=== PATIENT | male | born 1955 | race African-American/Black ===

== ENCOUNTER 2016-07-22 15:04 | Emergency (ER) | payer MEDICARE, OTHER ==
[~2016-07-22] VITALS: Ht 175.3 cm; Wt 85.0 kg
[~2016-07-22 15:04] MED LIST: BACT800T5 PO; DILA8TAB4 PO; GLYB5TAB3 PO; MECL25 PO; PRIN20TA2 PO; XANA2TAB2 PO
[2016-07-22 15:06] VITALS: BP 160/81; PULSE 105; RESP 15; TEMP 98.2; O2SAT 98
[2016-07-22] MEDS ORDERED: CEPH-460 PO (17:44)
[2016-07-22] MEDS ORDERED: IBUP800T23 PO (17:44)
[2016-07-22] MEDS ORDERED: BACT800T5 PO (17:44)
[2016-07-22] MEDS ORDERED: TETANUS/DIPHTHERIA TOXOID ADULT 0.5 ML VIAL IM ONE (17:45)
[2016-07-22] MEDS ORDERED: SULFAMETHOXAZOLE-TRIMETHOPRIM DS 800-160 MG TAB PO ONE (17:45)
[2016-07-22] MEDS ORDERED: CEPHALEXIN MONOHYDRATE 500 MG CAP PO ONE (17:45)
[2016-07-22] MEDS ORDERED: IBUPROFEN 800 MG TAB PO ONE (17:45)
--- NOTE | 2016-07-22 17:45 | PD ---
HPI Chief Complaint: Skin Problem Time Seen by Provider: 17:42 Travel History International Travel<30 days: No Contact w/Intl Traveler<30days: No Traveled to known affect area: No History of Present Illness HPI 60-year-old male presents to the emergency Department with complaint of a laceration to his left fourth digit that he thinks has become infected. He cut his finger on a saw yesterday and since then his finger and his hand become swollen and painful. He denies fever, chills, nausea, vomiting. Denies paresthesias, loss of sensation to affected hand. Reports decreased range of motion secondary to pain and swelling. Has not taken any medications to alleviate his symptoms. Has tried icing his hand to decrease swelling and pain. Does not know if he is up-to-date on his tetanus vaccination. No known allergies. No other modifying factors or associated signs and symptoms. PFSH Past Medical History Arthritis: Yes Blood Disorders: No Cancer: No Cardiovascular Problems: Yes Diabetes: Yes Diminished Hearing: No Endocrine: No Genitourinary: No Hypertension: Yes Immune Disorder: No Musculoskeletal: Yes Neurologic: No Psychiatric: No Reproductive: No Respiratory: No Past Surgical History Abdominal Surgery: Yes (left hernia repair) Oral Surgery: Yes (tonsillectomy) Tonsillectomy: Yes Social History Alcohol Use: Yes (beer daily) Tobacco Use: No Substance Use: No Allergies-Medications (Allergen,Severity, Reaction): Coded Allergies: No Known Allergies (Verified , 07/22/16) Reported Meds & Prescriptions Reported Meds & Active Scripts Active Ibuprofen 800 Mg Tab 800 Mg PO Q8H PRN Bactrim DS (Sulfamethoxazole-Trimethoprim) 800-160 Mg Tab 1 Tab PO BID 10 Days Keflex (Cephalexin) 500 Mg Cap 500 Mg PO Q6H 10 Days Reported Fentanyl Patch 72 HR (Fentanyl) 50 Mcg/Hr Patch 50 Mcg T-DERMAL Q72H Remove old patch when new one placed. Lisinopril 10 Mg Tab 10 Mg PO DAILY Dilaudid (Hydromorphone HCl) 8 Mg Tab 8 Mg PO Q6H PRN Review of Systems Except as stated in HPI: all other systems reviewed are Neg Physical Exam Narrative GENERAL: Well-nourished, well-developed male patient, in no acute distress; afebrile, nontoxic-appearing SKIN: Warm and dry. Left fourth digit with superficial laceration that is approximately 1-1/2 cm and is dry and healing by secondary intention; the wound is without drainage; the finger has limited range of motion with flexion at all finger joints; the finger and dorsal aspect of the hand are edematous, erythematous and with warmth to touch; all fingers with sensory intact and less than 3 second cap refill. Left upper extremities supple and non-tense with 2+ radial pulses and sensory intact. No left axillary lymphadenopathy. HEAD: Atraumatic. Normocephalic. EYES: Pupils equal and round. No scleral icterus. No injection or drainage. ENT: Mucosa pink and moist. Airway patent. NECK: Trachea midline. CARDIOVASCULAR: Regular rate. RESPIRATORY: No accessory muscle use. GASTROINTESTINAL: Rounded. MUSCULOSKELETAL: No obvious deformities. No clubbing. No cyanosis. No edema. NEUROLOGICAL: Awake and alert. Oriented 3. No obvious cranial nerve deficits. Motor grossly within normal limits. Normal speech. PSYCHIATRIC: Appropriate mood and affect; insight and judgment normal. Data Data Last Documented VS Vital Signs Date Time Temp Pulse Resp B/P Pulse Ox O2 Delivery O2 Flow Rate FiO2 07/22/16 15:06 98.2 105 15 160/81 98 Orders Ibuprofen (Motrin) (07/22/16 17:45) Cephalexin (Keflex) (07/22/16 17:45) Sulfamet-Trimeth Ds 800-160 Mg (Bactrim (07/22/16 17:45) Tetanus/Diphtheria Tox Adult (Tetanus/Di (07/22/16 17:45) MDM Medical Decision Making Medical Screen Exam Complete: Yes Emergency Medical Condition: Yes Medical Record Reviewed: Yes Differential Diagnosis Wound infection, laceration, cellulitis Narrative Course 50-year-old male physical exam consistent with a healing superficial laceration to the left fourth digit that has become infected. Left upper extremity supple and nontender 2+ radial pulses and sensory intact. The patient is afebrile and nontoxic-appearing. Tetanus updated in the ER. Ibuprofen, Keflex, Bactrim administered in the ER. The wound is already healed and dried and wound culture was unobtainable. Instructed patient to follow back in 2 days for wound recheck. Ibuprofen, Keflex, Bactrim prescribed for home. Patient verbalizes understanding and agreement with treatment plan. Patient is medically cleared and stable for discharge. Discussed reasons to return to the emergency department. Instructed patient to follow up with primary care provider. Patient agrees with treatment plan. The patients vital signs are stable and the patient is stable for outpatient follow-up and treatment. Patient discharged home, stable and in no acute distress. Diagnosis Primary Impression: Wound infection Referrals: Primary Care Physician Patient Instructions: Acute Wound Care (ED), Cellulitis (ED), General Instructions, Wound Infection (ED) Departure Forms: Tests/Procedures, Work Release Enter return to work date: Jul 26, 2016 Additional Instructions: Take antibiotics as prescribed and complete full course Tylenol or ibuprofen as directed and as needed to reduce pain Rest, ice, compress, and elevate extremity to decrease pain and inflammation Avoid aggravating activity; increase activity as tolerated Follow-up with primary care provider Return to the emergency department immediately with worsening symptoms Med/Other Pt SpecificInfo: Prescription(s) given Scripts Ibuprofen 800 Mg [id number] Mg PO Q8H PRN (PAIN SCALE 1 TO 10) #20 TAB Ref 0 Prov:Nila Hu 07/22/16 Sulfamethoxazole-Trimethoprim (Bactrim DS)800-160 Mg Tab1 Tab PO BID 10 Days Ref 0 Prov:Nila Hu 07/22/16 Cephalexin (Keflex)500 Mg [id number] Mg PO Q6H 10 Days Ref 0 Prov:Nila Hu 07/22/16 Disposition: 01 DISCHARGE HOME Condition: Stable Nila Hu Jul 22, 2016 17:45 Nila Hu Jul 22, 2016 17:45
[2016-07-22] MEDS ORDERED: FENT50DI T-DERMAL (17:48)
[2016-07-22] MEDS ORDERED: LISI10TA3 PO (17:48)
[2016-07-22] MEDS ORDERED: DILA8TAB4 PO (17:48)
== END 2016-07-22 18:39 | disposition home or self-care (01) ==
LOC: NETRI 15:04
DX: L08.9 Local infection of the skin and subcutaneous tissue, unspecified (principal); Z23 Encounter for immunization
CPT/HCPCS: 90471; 90714

== ENCOUNTER → 2017-07-11 | Outpatient (CLI) | payer MEDICARE, OTHER ==
[~2017-07-11] MED LIST changes: +CEPH-460 PO; +FENT50DI T-DERMAL; -GLYB5TAB3 PO; +IBUP1TAB7 PO; +LISI10TA3 PO; -MECL25 PO; -PRIN20TA2 PO; -XANA2TAB2 PO
[2017-07-11 09:16] LABS: ALT (GPT) 100 U/L (12-78); CHOLESTEROL 195 MG/DL (120-200); TRIGLYCERIDES 503 MG/DL (42-150)
[2017-07-11 09:17] LABS: ALBUMIN 2.7 GM/DL (3.4-5.0); AST (GOT) 87 U/L (15-37); BICARBONATE 24.3 MEQ/L (21.0-32.0); CALCIUM 8.5 MG/DL (8.5-10.1); CHLORIDE 100 MEQ/L (98-107); CREATININE 0.87 MG/DL (0.60-1.30); GLOMERULAR FILTRATION RATE 108 ML/MIN (>89); GLUCOSE,FASTING 283 MG/DL (74-99); SODIUM (NA) 133 MEQ/L (136-145)
[2017-07-11 09:18] LABS: ALKALINE PHOSPHATASE 910 U/L (45-117); CHOLESTEROL/ HDL RATIO 4.39 RATIO; HDL CHOLESTEROL 44.4 MG/DL (40.0-60.0); TOTAL BILIRUBIN ADULT 0.5 MG/DL (0.2-1.0); TOTAL PROTEIN 7.3 GM/DL (6.4-8.2)
[2017-07-11 09:20] LABS: BLOOD UREA NITROGEN 12 MG/DL (7-18)
[2017-07-11 17:06] LABS: HEMOGLOBIN A1C 9.8 % (4.3-6.0)
== END ==
LOC: CLAB 08:10
PROVIDERS: ATTEND General Practice
DX: E11.9 Type 2 diabetes mellitus without complications (principal)
CPT/HCPCS: 36415; 80053; 80061; 83036